=== PATIENT | female | born 1995 | race American Indian/Alaskan Native ===

== ENCOUNTER 2021-02-26 17:18 | Emergency (ER) | payer SELFPAY ==
[2021-02-26 18:58] VITALS: BP 149/84
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
[2021-02-26 19:24] LABS: Hematocrit 37.8 % (30.3-42.9); Hemoglobin 12.9 gm/dl (10.1-14.3); Mean Corpuscular HGB Conc 34 % (30-34); Mean Corpuscular Volume 91 fl (79-97); Platelet Count 260 K/mm3 (140-440); Red Blood Count 4.16 M/mm3 (3.65-5.03); Red Cell Distribution Width 13.8 % (13.2-15.2)
[2021-02-26 19:44] LABS: Blood Urea Nitrogen 10 mg/dL (7-17); Calcium 9.5 mg/dL (8.4-10.2); Hemolysis Index 15
[2021-02-26 19:56] LABS: BUN/Creatinine Ratio 14
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
--- NOTE | 2021-02-27 12:36 | Electrocardiograph Report ---
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
== END 2021-02-27 02:00 | disposition home or self-care (01) ==
LOC: ED 17:18
DX: M54.2 Cervicalgia (principal); R07.89 Other chest pain; V89.2XXA Person injured in unspecified motor-vehicle accident, traffic, initial encounter; Y93.89 Activity, other specified; Y92.488 Other paved roadways as the place of occurrence of the external cause; Y99.8 Other external cause status
CPT/HCPCS: 36415; 71260; 72125; 74177; 80048; 84703; 85027; 93005; 99284; Q9967